=== PATIENT | male | born 2000 | race African-American/Black ===

== ENCOUNTER 2024-11-06 03:26 | Emergency (ER) | payer OTHER ==
[~2024-11-06] VITALS: Ht 170.2 cm; Wt 63.0 kg
[2024-11-06] MEDS ORDERED: ACET-3385 PO (04:04)
[2024-11-06] MEDS ORDERED: AMOX-457 PO (04:04)
[2024-11-06] MEDS ORDERED: IBUP-1492 PO (04:04)
[2024-11-06] MEDS: IBUPROFEN 600 MG TABLET PO ONE (04:17)
[2024-11-06] MEDS: AMOX TR/POT CLAV 875 MG/125 MG TABLET PO ONE (04:17)
[2024-11-06] MEDS: ACETAMINOPHEN 500 MG TABLET PO ONE (04:18)
[2024-11-06 04:20] VITALS: BP 109/55; PULSE 66; RESP 18; TEMP 98.6; O2SAT 99
== END 2024-11-06 05:07 | disposition home or self-care (01) ==
LOC: EMS 03:26
DX: K08.89 Other specified disorders of teeth and supporting structures (principal)
CPT/HCPCS: 99284; Z7502; Z7610